=== PATIENT | female | born 1980 | race African-American/Black ===

== ENCOUNTER 2022-01-04 06:00 | Inpatient (IN) ==
[2021-12-29 16:45] LABS: Basophils % 0.3 % (0.0-0.8); Eosinophils # 0.1 10*3/uL (0.0-0.87); Eosinophils % 1.1 % (0.00-10.9); Hematocrit 37.2 VOL% (35.7-47.0); Hemoglobin 12.1 GM/DL (12.0-16.0); Immature Granulocytes % 0.4 %; Immature Granulocytes Absolute 0.04 #; Lymphocytes # 2.8 10*3/uL (1.4-4.0); Lymphocytes % 31.1 % (21.3-54.2); Mean Corpuscular HGB Conc 32.5 GM/DL (32-36); Mean Corpuscular Volume 80.5 FL (87-102); Mean Platelet Volume 10.3 FL (9.6-12.0); Monocytes # 0.6 10*3/uL (0.11-0.8); Monocytes % 6.1 % (1.7-12.7); Platelet Count 379 T/CUMM (130-400); Red Blood Count 4.62 MC/CUMM (3.8-5.5); Red Cell Distribution Width 15.7 % (9.3-17.3); White Blood Count 9.1 T/CUMM (4-12)
[2021-12-29 17:08] LABS: Calcium 9.2 MG/DL (8.5-10.1); Potassium 3.9 MMOL/L (3.5-5.1)
[~2022-01-04 06:00] MED LIST: ACETAMINOPHEN INJ 1,000 MG/100 ML VIAL IV ONE; HEPARIN 5,000 UNIT/1 ML VIAL SUBCUT ONE; HYOSCYAMINE 0.125 MG TABLET SL ONE; LACTATED RINGERS 1,000 ML IV SCH; PANTOPRAZOLE 40 MG VIAL IV ONE; SCOPOLAMINE 1.5 MG PATCH TRANSDERM ONE
[2022-01-04] MEDS ORDERED: ACETAMINOPHEN 500 MG TABLET PO ONE (06:35)
[2022-01-04] MEDS ORDERED: GABAPENTIN 400 MG CAPSULE PO ONE (06:35)
[2022-01-04] MEDS ORDERED: fentaNYL 100 MCG/2 ML VIAL ONE ×2 (06:35→08:21)
[2022-01-04] MEDS ORDERED: BUPIVACAINE MPF 0.25% 10 ML VIAL ONE (06:35)
[2022-01-04] MEDS ORDERED: LIDOCAINE 2% 5 ML VIAL ONE (06:35)
[2022-01-04] MEDS ORDERED: FAMOTIDINE 20 MG TABLET PO ONE (06:35)
[2022-01-04] MEDS ORDERED: MIDAZOLAM 2 MG/2 ML VIAL ONE (06:35)
[2022-01-04] MEDS ORDERED: propofoL 200 MG/20 ML VIAL IV ONE ×3 (06:35→09:27)
[2022-01-04] MEDS ORDERED: DIAZEPAM 5 MG TABLET PO ONE (06:35)
[2022-01-04] MEDS ORDERED: BUPIVACAINE LIPOSOMAL 20 ML/266 MG VIAL ONE (06:36)
[2022-01-04] MEDS ORDERED: TISSUE ADHESIVE 1 EACH APPLICATOR TOP ONE ×2 (06:36→09:30)
[2022-01-04] MEDS ORDERED: LIDOCAINE 1%/EPI INJ 20 ML VIAL ONE (06:36)
[2022-01-04] MEDS ORDERED: LACTATED RINGERS 1,000 ML IV SCH (07:00)
[2022-01-04] MEDS ORDERED: ROCURONIUM 50 MG/5 ML VIAL IV ONE (08:41)
[2022-01-04] MEDS ORDERED: DEXAMETHASONE 4 MG/1 ML VIAL ONE (08:41)
[2022-01-04] MEDS ORDERED: SEVOFLURANE 1 UNIT/15 MINUTE INH ONE ×2 (08:41→09:15)
[2022-01-04] MEDS ORDERED: LACTATED RINGERS 1,000 ML IV ONE (08:41)
[2022-01-04] MEDS ORDERED: SUCCINYLCHOLINE 200 MG/10 ML VIAL ONE (08:41)
[2022-01-04] MEDS ORDERED: ONDANSETRON 4 MG/2 ML VIAL ONE ×2 (08:41→10:05)
[2022-01-04] MEDS ORDERED: INDOCYANINE GREEN 25 MG VIAL IV ONE (09:03)
[2022-01-04] MEDS ORDERED: SUGAMMADEX 200 MG/2 ML VIAL IV ONE (09:10)
[2022-01-04] MEDS ORDERED: ONDANSETRON 4 MG/2 ML VIAL IV PRN (09:59)
[2022-01-04] MEDS ORDERED: MEPERIDINE 25 MG/1 ML VIAL IV PRN (09:59)
[2022-01-04] MEDS ORDERED: PROMETHAZINE INJ 25 MG in SODIUM CHLORIDE 0.9% 50 ML IV PRN (09:59)
[2022-01-04] MEDS ORDERED: diphenhydrAMINE 50 MG/1 ML VIAL IV PRN (09:59)
[2022-01-04] MEDS ORDERED: PROMETHAZINE 25 MG/1 ML VIAL ONE (10:05)
[2022-01-04] MEDS: HYDROmorphone 1 MG/1 ML SYRINGE IV PRN ×4 (10:05→10:40)
[2022-01-04] MEDS ORDERED: HYDROcod/ACETAMIN 7.5-325 MG/15 ML UDCUP PO PRN (12:34)
[2022-01-04] MEDS ORDERED: MORPHINE 2 MG/1 ML SYRINGE IV PRN (12:34)
[2022-01-04] MEDS ORDERED: PROMETHAZINE 25 MG SUPP RECTAL PRN (12:34)
[2022-01-04] MEDS ORDERED: hydrALAZINE 20 MG/1 ML VIAL IV PRN (12:34)
[2022-01-04] MEDS ORDERED: PROMETHAZINE 25 MG/1 ML VIAL IM PRN (12:34)
[2022-01-04] MEDS ORDERED: PROMETHAZINE 12.5 MG SUPP RECTAL PRN (13:30)
[2022-01-04] MEDS: LACTATED RINGERS 1,000 ML IV SCH ×2 (15:00→20:23)
[2022-01-04] MEDS: ONDANSETRON 4 MG/2 ML VIAL IV PRN ×3 (15:46→20:23)
[2022-01-04] MEDS: ceFAZolin 2,000 MG/50 ML DUPLEX IV SCH (20:23)
[2022-01-04] MEDS: PROMETHAZINE 25 MG/1 ML VIAL IM PRN (21:25)
[2022-01-05] MEDS: LACTATED RINGERS 1,000 ML IV SCH ×3 (04:16→17:51)
[2022-01-05] MEDS: ceFAZolin 2,000 MG/50 ML DUPLEX IV SCH (04:16)
[2022-01-05] MEDS: ONDANSETRON 4 MG/2 ML VIAL IV PRN ×2 (05:29→12:26)
[2022-01-05 05:53] LABS: Basophils % 0.2 % (0.0-0.8); Hematocrit 33.1 VOL% (35.7-47.0); Hemoglobin 10.8 GM/DL (12.0-16.0); Immature Granulocytes % 0.6 %; Immature Granulocytes Absolute 0.08 #; Lymphocytes # 2.5 10*3/uL (1.4-4.0); Mean Corpuscular HGB Conc 32.6 GM/DL (32-36); Mean Corpuscular Volume 79.6 FL (87-102); Mean Platelet Volume 9.7 FL (9.6-12.0); Monocytes % 7.3 % (1.7-12.7); Neutrophils % 72.9 % (38.7-73.9); Platelet Count 332 T/CUMM (130-400); Red Blood Count 4.16 MC/CUMM (3.8-5.5); Red Cell Distribution Width 15.6 % (9.3-17.3); White Blood Count 13.4 T/CUMM (4-12)
[2022-01-05 06:16] LABS: Calcium 9.1 MG/DL (8.5-10.1); Osmolality,Calculated 280.3 MOS/KG (273-304); Potassium 3.4 MMOL/L (3.5-5.1)
[2022-01-05] MEDS: PANTOPRAZOLE 40 MG VIAL IV SCH (08:37)
[2022-01-05] MEDS: PROMETHAZINE 25 MG/1 ML VIAL IM PRN (08:37)
[2022-01-05] MEDS: CETIRIZINE 1 MG/ML 30 ML/BOTTLE PO SCH (12:25)
[2022-01-05] MEDS: SIMETHICONE CHEW 80 MG TABLET PO SCH ×2 (14:35→20:38)
[2022-01-06] MEDS: LACTATED RINGERS 1,000 ML IV SCH ×2 (00:35→06:40)
[2022-01-06 05:38] LABS: Basophils # 0.1 10*3/uL (0.0-0.2); Basophils % 0.5 % (0.0-0.8); Eosinophils # 0.2 10*3/uL (0.0-0.87); Eosinophils % 1.8 % (0.00-10.9); Hematocrit 31.5 VOL% (35.7-47.0); Hemoglobin 10.1 GM/DL (12.0-16.0); Immature Granulocytes % 0.6 %; Immature Granulocytes Absolute 0.06 #; Lymphocytes # 2.6 10*3/uL (1.4-4.0); Lymphocytes % 26.3 % (21.3-54.2); Mean Corpuscular HGB Conc 32.1 GM/DL (32-36); Mean Corpuscular Volume 81.2 FL (87-102); Mean Platelet Volume 9.7 FL (9.6-12.0); Monocytes # 0.8 10*3/uL (0.11-0.8); Neutrophils % 62.8 % (38.7-73.9); Platelet Count 279 T/CUMM (130-400); Red Blood Count 3.88 MC/CUMM (3.8-5.5); Red Cell Distribution Width 15.4 % (9.3-17.3); White Blood Count 9.8 T/CUMM (4-12)
[2022-01-06 05:54] LABS: Calcium 8.7 MG/DL (8.5-10.1); Osmolality,Calculated 279.1 MOS/KG (273-304); Potassium 3.3 MMOL/L (3.5-5.1)
[2022-01-06 07:54] VITALS: BP 123/71
[2022-01-06] MEDS: SIMETHICONE CHEW 80 MG TABLET PO SCH (08:56)
[2022-01-06] MEDS: PANTOPRAZOLE 40 MG VIAL IV SCH (08:59)
[2022-01-06] MEDS: CETIRIZINE 1 MG/ML 30 ML/BOTTLE PO SCH (09:00)
[2022-01-06] MEDS ORDERED: ENOXAPARIN 40 MG/0.4 ML SYRINGE SUBCUT SCH (09:00)
== END 2022-01-06 10:45 | disposition home or self-care (01) | DRG 621 ==
LOC: N.SDSINP 06:00 → N.3E 12:20
PROVIDERS: ADMIT Surgery; ATTEND Surgery